=== PATIENT | male | born 1960 | race Caucasian/White ===

== ENCOUNTER 2019-07-11 16:17 | Outpatient (CLI) | payer OTHER, SELFPAY ==
--- NOTE | ~2019-07-11 | XR_ITS ---
EXAMINATION: XR lumbar spine 6V w bending DATE: 07/11/2019 16:41 INDICATION: Low back pain TECHNIQUE: Anteroposterior, lateral in neutral, flexion and extension, and bilateral oblique views of the lumbar spine, and cone-down lateral view of the lumbosacral junction were obtained. COMPARISON: None. FINDINGS: The vertebral body heights and alignment are normal. No motion is present with flexion or e xtension. There is mild loss of intervertebral disc space height at L4-5. Small degenerative osteophy dawson project from the anterior endplates of multiple vertebral bodies. There is mild facet osteoarthri tis of the lower lumbar spine. Lumbar levocurvature is noted. IMPRESSION: 1. Mild lumbar spondylosis without acute findings. Reviewed, dictated and finalized at location A. OR BENEFITS MANAGER
--- NOTE | ~2019-07-11 | XR_ITS ---
EXAMINATION: XR chest 2V DATE: 07/11/2019 16:40 INDICATION: Personal history of nicotine dependence TECHNIQUE: PA and lateral views of the chest are obtained. COMPARISON: None available FINDINGS: The lungs are free of acute opacities. There is no pleural effusion or pneumothorax. The ca rdiomediastinal silhouette is normal. There is upper thoracic levoscoliosis. IMPRESSION: 1. No acute cardiopulmonary abnormality. Reviewed, dictated and finalized at location A. R SIGNAL PROCESSING ENGINEER
== END 2019-07-11 16:18 | disposition home or self-care (01) ==
LOC: ANHBWCIMG 16:20
PROVIDERS: PCP Family Medicine; Visit Provider Family Medicine
DX: M54.5 Low back pain (principal); M47.816 Spondylosis without myelopathy or radiculopathy, lumbar region; Z87.891 Personal history of nicotine dependence
CPT/HCPCS: 71046; 72114

== ENCOUNTER 2019-07-15 08:21 | Outpatient (CLI) | payer OTHER, SELFPAY ==
[2019-07-15 17:26] LABS: Basophils Percent Auto 0.8 % (0.2-1.2); Eosinophils Absolute Auto 0.1 K/mm3 (0-0.3); Eosinophils Percent Auto 2.8 % (0-4.4); Hematocrit 45.2 % (42.0-52.0); Hemoglobin 14.7 g/dL (14.0-18.0); Immature Granulocyte Absolute 0.01 K/mm3 (0.00-0.031); Immature Granulocyte Percent A 0.3 % (0-0.5); Lymphocytes Percent Auto 28.4 % (18.3-44.2); Mean Corpuscular HGB Conc 32.5 g/dl (32-36); Mean Corpuscular Hemoglobin 29.4 pg (26-34); Mean Corpuscular Volume 90.4 fl (80-100); Mean Platelet Volume 10.3 fl (7.4-10.4); Monocytes Absolute Auto 0.2 K/mm3 (0.1-0.6); Monocytes Percent Auto 5.4 % (2.6-8.5); Neutrophils Absolute Auto 2.4 K/mm3 (1.3-6.7); Neutrophils Percent Auto 62.3 % (45.5-73.1); Platelet Count Result 209 k/mm3 (150-375); Red Cell Distribution Width 14.2 % (11.5-14.5); White Blood Count 3.9 K/mm3 (4.5-10.0)
[2019-07-15 17:30] LABS: Add Urine Microscopic? NO; Appearance Urine Clear (Clear); Bilirubin Urine Negative (Negative); Blood Urine Negative (Negative); Color Urine Yellow (Yellow); Glucose Urine UA Negative (Negative); Ketones Urine Negative (Negative); Leukocyte Esterase Ur Negative LEU/UL (Negative); Nitrate Urine Negative (Negative); Protein Urine Negative (Negative); Specific Grav Ur 1.019 (1.001-1.035); Urobilinogen Urine Negative mg/dL (<2.0)
[2019-07-15 18:53] LABS: Iron 110 ug/dL (49-181)
[2019-07-15 18:55] LABS: Alanine Aminotransferase 33 U/L (4-50); Albumin Level 4.3 g/dL (3.5-5.1); Alkaline Phosphatase 44 U/L (38-126); Aspartate Amino Transferase 26 U/L (17-59); Bilirubin,Total 0.7 mg/dL (0.2-1.3); Blood Urea Nitrogen 21 mg/dL (9-20); CRP < 0.5 mg/dL (<1.0); Calcium 9.3 mg/dL (8.4-10.2); Carbon Dioxide 29 mmol/L (22-30); Chloride 101 mmol/L (98-107); Cholesterol 186 mg/dL (0-200); Estimated Glomerular Filt Rate > 60; Glucose 95 mg/dL (75-110); HDL Direct 53 mg/dL; Potassium 4.5 mmol/L (3.4-5.0); Sodium 141 mmol/L (137-145); Triglycerides 60 mg/dL (<150)
[2019-07-15 19:03] LABS: Percent Iron Saturation 35 % (20-50)
[2019-07-15 19:04] LABS: LDL Cholesterol Direct 120 mg/dL
[2019-07-15 19:59] LABS: Folic Acid 15.3 ng/mL (2.76->20)
[2019-07-15 22:07] LABS: Vitamin D 25 Hydroxy 38.3 ng/mL
[2019-07-18 11:48] LABS: Testosterone Free 75.7 pg/mL (35.0-155.0); Testosterone Total 508 ng/dL (250-1100)
== END 2019-07-15 08:22 | disposition home or self-care (01) ==
PROVIDERS: PCP Family Medicine; Visit Provider Family Medicine
DX: Z00.00 Encounter for general adult medical examination without abnormal findings (principal); K27.4 Chronic or unspecified peptic ulcer, site unspecified, with hemorrhage; R53.83 Other fatigue; Z79.899 Other long term (current) drug therapy; N99.89 Other postprocedural complications and disorders of genitourinary system; Z82.62 Family history of osteoporosis; Z87.891 Personal history of nicotine dependence
CPT/HCPCS: 36415; 80053; 80061; 81003; 82306; 82607; 82746; 83540; 83550; 84402; 84403; 84443; 85025; 86140

== ENCOUNTER → 2021-06-19 00:13 | Outpatient (CLI) | payer OTHER, SELFPAY ==
[2021-06-19 20:23] LABS: SARS-CoV-2 RNA PCR Positive
[2021-06-20 23:31] LABS: Influenza A QL RT-PCR Negative (Negative); Influenza B QL RT-PCR Negative (Negative)
== END ==
PROVIDERS: PCP Family Medicine; Visit Provider Family Medicine
DX: U07.1 COVID-19 (principal)
CPT/HCPCS: 87502; C9803; U0003; U0005

== ENCOUNTER 2022-11-17 15:38 | Outpatient (CLI) | payer OTHER, SELFPAY ==
[2022-11-17 19:31] LABS: Alanine Aminotransferase 26 U/L (6-50); Albumin Level 4.3 g/dL (3.5-5.1); Alkaline Phosphatase 39 U/L (38-126); Anion Gap 5 mmol/L (8-16); Aspartate Amino Transferase 41 U/L (17-59); Bilirubin,Total 0.8 mg/dL (0.2-1.3); Blood Urea Nitrogen 14 mg/dL (9-20); Calcium 9.1 mg/dL (8.4-10.2); Carbon Dioxide 32 mmol/L (22-30); Chloride 102 mmol/L (98-107); Cholesterol 236 mg/dL (0-200); Estimated Glomerular Filt Rate > 60; Glucose 96 mg/dL (65-110); HDL Direct 52 mg/dL; Potassium 4.7 mmol/L (3.4-5.0); Sodium 139 mmol/L (137-145); Triglycerides 99 mg/dL (<150)
[2022-11-17 19:43] LABS: LDL Cholesterol Direct 150 mg/dL
== END 2022-11-17 15:39 | disposition home or self-care (01) ==
LOC: ANHBWCLAB 15:39
PROVIDERS: PCP Family Medicine; Visit Provider Nurse Practitioner Adult Health
DX: Z13.220 Encounter for screening for lipoid disorders (principal); Z13.9 Encounter for screening, unspecified
CPT/HCPCS: 36415; 80053; 80061

== ENCOUNTER 2024-08-27 16:21 | Outpatient (CLI) | payer OTHER, SELFPAY ==
--- NOTE | ~2024-08-27 | XR_ITS ---
Lumbosacral Spine: AP and lateral views Clinical History: Pain Findings: The normal lordotic curve is maintained. The vertebral bodies and posterior elements are i ntact. The intervertebral disc spaces are preserved. Moderate facet joint degenerative changes prese nt at the lower lumbar spine. The sacroiliac joints are normally outlined. Impression: Moderate facet joint degenerative changes. Reviewed, dictated and finalized at location . Impression: Moderate facet joint degenerative changes.
== END 2024-08-27 16:22 | disposition home or self-care (01) ==
LOC: MICIMG 16:22
PROVIDERS: PCP Family Medicine; Visit Provider Family Medicine
DX: M54.50 Low back pain, unspecified (principal); M51.369 Other intervertebral disc degeneration, lumbar region without mention of lumbar back pain or lower extremity pain
CPT/HCPCS: 72100